=== PATIENT | female | born 1995 | race Two or more races ===

== ENCOUNTER 2020-12-03 02:34 | Observation (INO) | payer SELFPAY ==
[~2020-12-03] VITALS: Ht 172.7 cm; Wt 60.0 kg
--- NOTE | 2020-12-03 02:42 | NUR ---
INITIAL PT CONTACT. PT PRESENTS TO ED VIA EMS C/O SUICIDAL IDEATION, NO HX. PT STATES SHE WAS WITH HER BOYFRIEND, A SMALL ARGUMENT OCCURED AND THEN SHE STATED SHE WANTED TO KILL HERSELF. BOYFRIEND CALLED EMS WHEN THIS STATEMENT WAS MADE. PT REPORTS ON AND OFF IDEATION OVER THE PAST 3 MONTHS. DENIES HI. PT DESCRIBED THE SI "I JUST HAD AN IMPULSE, I DON'T HAVE A PLAN OR WAY TO DO IT, I AM JUST FEELING REALLY DOWN AND I DONT KNOW HOW TO HANDLE IT." ALL BELONGINGS REMOVED FROM ROOM, SECURED IN APPROPRIATE LOCKER (X1 BAG). PT SITTING UPRIGHT ON GURNEY, CALM AND COOPERATIVE WITH STAFF. PATRICIA SHAY. ERP AT BEDSIDE. SAFETY PRECAUTIONS IN PLACE, SITTER IN VIEW.
[2020-12-03 03:16] LABS: BASOPHILS % (AUTO) 1 % (0-1); EOSINOPHILS % (AUTO) 0 % (1-7); LYMPHOCYTES % (AUTO) 32 % (22-44); MEAN CORPUSCULAR HEMOGLOBIN 32.9 pg (27.0-34.8); MEAN CORPUSCULAR HGB CONC 34.4 g/dL (32.4-35.8); MEAN PLATELET VOLUME 7.6 fL (7.4-10.4); MONOCYTES % (AUTO) 7 % (2-9); NEUTROPHILS % (AUTO) 60 % (42-75); PLATELET COUNT 282 x10^3/uL (130-400); RED BLOOD COUNT 4.28 x10^6/uL (3.82-5.3); RED CELL DISTRIBUTION WIDTH 12.4 % (9.6-15.2)
[2020-12-03 03:22] LABS: ALBUMIN 3.9 g/dL (3.4-5.0); ANION GAP 6 mmol/L (5-15); CALCIUM 8.1 mg/dL (8.5-10.1); CHLORIDE 110 mmol/L (98-107); CREATININE 0.63 mg/dL (0.55-1.02)
[2020-12-03 03:36] LABS: SALICYLATE LEVEL < 1.7 mg/dL (2.8-20.0)
[2020-12-03 03:50] LABS: AMPHETAMINE SCREEN, URINE Negative (Negative); BARBITURATE SCREEN, URINE Negative (Negative); BENZODIAZEPINE SCREEN, URINE Negative (Negative); CANNABINOID SCREEN, URINE Negative (Negative); COCAINE SCREEN, URINE Negative (Negative); METHADONE SCREEN, URINE Negative (Negative); OPIATE SCREEN, URINE Negative (Negative)
--- NOTE | 2020-12-03 06:32 | NUR ---
REPORT FROM ELIZABETH PT MOVED TO 34 AT THIS TIME. AWAITING PSYCH EVAL Addendum: 12/03/20 at 0633 by [email or web address] [id number]
--- NOTE | 2020-12-03 06:36 | NUR ---
BEDSIDE REPORT GIVEN TO MELY JOYCE. PT MOVED FROM ROOM 43 TO 33. NO NEEDS AT THIS TIME. SAFETY PRECAUTIONS IN PLACE, SITTER IN VIEW.
--- NOTE | 2020-12-03 07:00 | NUR ---
REPORT TAKEN FROM MARIA DEL CARMEN LOPES. PT RESTING ON GURNEY, RESPS EVEN AND UNLABORED, JASPAL.
--- NOTE | 2020-12-03 08:00 | NUR ---
PT UPDATED WITH POC, MADE AWARE THAT SHE IS WAITING ON PSYCH CONSULT. PT IS CALM, WITHDRAWN, COOPERATIVE. PT DENIES SI. PT DENIES PAIN. SITTER MONITORING FROM [facility]ORW[facility] FOR SAFETY.
--- NOTE | 2020-12-03 08:50 | NUR ---
PT PROVIDED WITH SI MEAL TRAY. PT SLEEPING ON GURNEY, RESPS EVEN AND UNLABORED. SITTER MONITORING FROM [facility] FOR SAFETY.
--- NOTE | 2020-12-03 09:35 | NUR ---
pt sleeping on gurney, resps even and unlabored, sitter monitoring from hallway for safety.
--- NOTE | 2020-12-03 09:49 | NUR ---
PT DENYING SI, REQUESTING TO LEAVE. MARIS OSBORN NOTIFIED. PT TO BE REASSESSED BY .
[2020-12-03 10:01] VITALS: BP 96/62
== END 2020-12-03 11:45 | disposition home or self-care (01) ==
LOC: ED 04:27 → EDIP 04:46 → INTOOBSV 04:46 → UNDODISIN 11:45
PROVIDERS: ADMIT Emergency Medicine; ATTEND Emergency Medicine
DX: R45.851 Suicidal ideations (principal); F10.120 Alcohol abuse with intoxication, uncomplicated; F41.1 Generalized anxiety disorder
CPT/HCPCS: 36415; 80048; 80299; 80307; 80320; 80329; 82040; 84703; 85025; 99284; G0378; 99285; G0480